=== PATIENT | female | born 1970 | race Caucasian/White ===

== ENCOUNTER 2018-01-27 11:22 | Outpatient (CLI) | payer BC | END 2018-01-27 11:23 | disposition home or self-care (01) | LOC: BICMAMMO 11:22 | PROVIDERS: ATTEND Obstetrics & Gynecology | DX: Z12.31 Encounter for screening mammogram for malignant neoplasm of breast (principal); R92.1 Mammographic calcification found on diagnostic imaging of breast; Z80.3 Family history of malignant neoplasm of breast | CPT/HCPCS: 77063; 77067 ==

== ENCOUNTER 2018-03-21 10:04 | Day surgery (SDC) | payer BC ==
[2018-03-18 08:33] VITALS: BMI 51.2
[2018-03-21] MEDS ORDERED: PROPOFOL 200 MG/20 ML VIAL ONE (13:00)
--- NOTE | 2018-03-21 19:33 | OP ---
DATE OF PROCEDURE: 03/21/2018 PREPROCEDURE DIAGNOSES: 1. Family history of colorectal cancer in the patient's mother at a young age. 2. Intermittent rectal bleeding, which revealed hemorrhoids. POSTPROCEDURE DIAGNOSES: 1. Internal hemorrhoids. 2. Otherwise, normal colonoscopy. ANESTHESIA: TIVA. Prep fair, adequate to identify polyps greater than 6 mm in size. RECOMMENDATIONS: Repeat colonoscopy in 5 years. PROCEDURE IN DETAIL: After the patient was informed of the risks, benefits, possible complications o f endoscopy including perforation, bleeding, reaction to medication and aspiration, informed consent was obtained. The patient was brought to the endoscopy suite where she was sedated in a gradual fash ion. Once she was comfortable, rectal exam was performed, which revealed no abnormalities. The endo scope was advanced through the anal canal to the cecum ileocecal valve and appendiceal orifice. The prep was fair. We irrigated with about 500-700 mL of sterile water. This can improve the prep somewhat. Small and flat polyps may have been missed, especially in the right colon where the prep stool matter to the colon wall, which could not be irrigated freely. Retroflexed views in the rectum were normal, except for the internal hemorrhoids. The scope was removed. The patient tolerat ed the procedure well without complications.
== END 2018-03-21 13:55 | disposition home or self-care (01) ==
LOC: SDC 10:04
PROVIDERS: ATTEND Internal Medicine Gastroenterology
PROC: 0DJD8ZZ Inspection of Lower Intestinal Tract, Via Natural or Artificial Opening Endoscopic (ICD-10-PCS; principal; 2018-03-21)
DX: K62.5 Hemorrhage of anus and rectum (principal); K64.8 Other hemorrhoids; K21.9 Gastro-esophageal reflux disease without esophagitis; F17.210 Nicotine dependence, cigarettes, uncomplicated; E66.01 Morbid (severe) obesity due to excess calories; Z68.43 Body mass index [BMI] 50.0-59.9, adult; Z79.899 Other long term (current) drug therapy; Z88.5 Allergy status to narcotic agent; Z80.0 Family history of malignant neoplasm of digestive organs; Z98.84 Bariatric surgery status

== ENCOUNTER 2019-08-09 11:38 | Outpatient (CLI) | payer BC ==
--- NOTE | 2019-08-09 12:39 | MMO ---
Bilateral MAMMO Bilat Screen [facility]. CLINICAL HISTORY: Patient is 49 years old and is seen for screening. The patient has the following family history of breast cancer: maternal grandmother. The patient has no personal history of cancer. VIEWS: The views performed were: bilateral craniocaudal with tomosynthesis and bilateral mediolateral oblique with tomosynthesis. FILMS COMPARED: The present examination has been compared to prior imaging studies performed at [facility] on 12/17/2014, 12/20/2014, 03/12/2016 and 01/27/2018. This study has been interpreted with the assistance of computer-aided detection. MAMMOGRAM FINDINGS: There are scattered fibroglandular densities. There are no suspicious masses, suspicious calcifications, or new areas of architectural distortion. IMPRESSION: THERE IS NO MAMMOGRAPHIC EVIDENCE OF MALIGNANCY. A ROUTINE FOLLOW-UP MAMMOGRAM IN 1 YEAR IS RECOMMENDED. THE RESULTS OF THIS EXAM WERE SENT TO THE PATIENT. ACR BI-RADS Category 1 - Negative MAMMOGRAPHY NOTE: 1. A negative mammogram report should not delay a biopsy if a dominant of clinically suspicious mass is present. 2. Approximately 10% to 15% of breast cancers are not detected by mammography. 3. Adenosis and dense breasts may obscure an underlying neoplasm. Reported by: PENELOPE GROVER MD Electonically Signed: [id number]
== END 2019-08-09 11:39 | disposition home or self-care (01) ==
LOC: BICMAMMO 11:38
PROVIDERS: ATTEND Obstetrics & Gynecology
DX: Z12.31 Encounter for screening mammogram for malignant neoplasm of breast (principal); Z80.3 Family history of malignant neoplasm of breast
CPT/HCPCS: 77063; 77067

== ENCOUNTER 2025-06-21 15:01 | Outpatient (CLI) | payer BC | END 2025-06-21 15:02 | disposition home or self-care (01) | LOC: BICMAMMO 15:01 | PROVIDERS: ATTEND Obstetrics & Gynecology | DX: Z12.31 Encounter for screening mammogram for malignant neoplasm of breast (principal); Z13.820 Encounter for screening for osteoporosis; Z80.3 Family history of malignant neoplasm of breast | CPT/HCPCS: 77063; 77067; 77080 ==